=== PATIENT | male | born 1985 | race Caucasian/White ===

== ENCOUNTER 2017-04-28 10:54 | Outpatient (CLI) | payer OTHER ==
[2017-04-28 11:45] LABS: #Basophils 0.1 thou/uL (0.0-0.2); #Eosinphils 0.2 thou/uL (0.0-0.7); #Lymphocytes 1.7 thou/uL (1.20-3.40); #Monocytes 0.6 thou/uL (0.11-0.59); #Neutrophils 3.8 thou/uL (1.40-6.50); %Basophils 1.5 % (0.0-1.0); %Eosinophils 3.1 % (0.0-10.0); %Lymphocytes 26.5 % (21.0-51.0); %Monocytes 9.9 % (0.0-10.0); Hemoglobin 15.9 g/dL (14.0-18.0); Mean Corpuscular HGB CONC 35.4 g/dL (32.0-36.0); Mean Corpuscular Hemoglobin 29.9 pg (27.0-31.0); Mean Corpuscular Volume 84.5 fl (80.0-94.0); Mean Platelet Volume 9.6 fL (7.4-10.4); Platelet Count 188 thou/uL (130-400); RBC Distribution Width 11.8 % (11.5-14.5); Red Blood Cell (RBC) Count 5.34 mill/uL (4.70-6.10); White Blood Cell (WBC) Count 6.4 thou/uL (4.8-10.8)
[2017-04-28 11:47] LABS: ALT (SGPT) 31 U/L (8-55); AST (SGOT) 21 U/L (5-34); Albumin 4.6 g/dL (3.5-5.0); Alkaline Phosphatase 51 U/L (40-150); Anion Gap 20 mmol/L (10-20); BUN (Urea Nitrogen) 11 mg/dL (8.9-20.6); Bilirubin, Total 0.8 mg/dL (0.2-1.2); Calc. Creatinine Clearance 0 mL/min (70-130); Calcium 9.8 mg/dL (7.8-10.44); Chloride 104 mmol/L (98-107); Estimated GFR-MDRD Greater than 90; Glucose 95 mg/dL (70-105); Potassium 4.5 mmol/L (3.5-5.1); Protein, Total 7.6 g/dL (6.0-8.3); Sodium 141 mmol/L (136-145)
[2017-04-28 13:27] LABS: Carbon Dioxide 22 mmol/L (22-29)
[2017-04-28 17:45] LABS: Valproic Acid (Depakene) 46.3 ug/mL (50.0-100.0)
== END 2017-04-28 10:55 | disposition home or self-care (01) ==
LOC: BURLAB 10:54
PROVIDERS: ATTEND Family Medicine
DX: G40.909 Epilepsy, unspecified, not intractable, without status epilepticus (principal); F95.2 Tourette's disorder; R79.89 Other specified abnormal findings of blood chemistry
CPT/HCPCS: 36415; 80050; 80164